=== PATIENT | female | born 1995 | race Caucasian/White ===

== ENCOUNTER 2017-05-04 11:26 | Emergency (ER) | payer OTHER ==
[~2017-05-04] VITALS: Ht 170.2 cm; Wt 59.0 kg
[~2017-05-04 11:26] MED LIST: AMOXICILLIN500 M1 PO; AURALGAN EAR DR14 ML OTIC; CIPROFLOXACIN500 M1 PO; CLARITIN-D 24 H1 TA1 PO; HYDROCODON-ACE1 EAC7 PO; KEFLEX250 MG/5 M PO; KEFLEX500 MG PO; NOHOMEMEDICATIONS; ORAPRED15 MG/5 M1 PO; PREDNISONE 20 M20 M1 PO; ROBITUSSIN-COU237 ML PO; VALTREX1000 MG PO
[2017-05-04 11:36] VITALS: BP 107/68
[2017-05-04 11:40] LABS: URINE BILIRUBIN NEGATIVE (Negative); URINE BLOOD 3+ (Negative); URINE CLARITY CLOUDY; URINE COLOR YELLOW; URINE GLUCOSE-RANDOM NEGATIVE (Negative); URINE KETONES TRACE (Negative); URINE LEUKOCYTES-REFLEX 3+ (Negative); URINE NITRITE-REFLEX NEGATIVE (Negative); URINE PROTEIN 1+ (Negative); URINE SPECIFIC GRAVITY 1.025 (1.005-1.030); URINE UROBILINOGEN 0.2 E.U./dl (0.2-1.0)
[2017-05-04 11:48] LABS: BACTERIA-REFLEX >30 Many /HPF (None Seen); CASTS None Seen /LPF (None Seen); CRYSTALS None Seen /LPF (None Seen); SQUAMOUS >10 Many /LPF (0-3); URINE RBC >20 Many /HPF (0-2); URINE WBC-REFLEX >25 Many /HPF (0-5); WBC CLUMPS Many (None Seen)
[2017-05-04] MEDS ORDERED: BACTRIM DS TAB1 EACH PO (12:15)
== END 2017-05-04 12:32 | disposition home or self-care (01) ==
LOC: M.ERS 11:26
PROVIDERS: Nurse Practitioner Family
DX: N39.0 Urinary tract infection, site not specified (principal); R31.9 Hematuria, unspecified

== ENCOUNTER 2017-07-07 04:54 | Emergency (ER) | payer OTHER ==
[~2017-07-07] VITALS: Ht 170.2 cm; Wt 63.5 kg
[~2017-07-07 04:54] MED LIST changes: +BACTRIM DS TAB1 EACH PO
[2017-07-07 05:17] LABS: URINE BILIRUBIN NEGATIVE (Negative); URINE BLOOD 1+ (Negative); URINE CLARITY SL CLOUDY; URINE COLOR YELLOW; URINE GLUCOSE-RANDOM NEGATIVE (Negative); URINE KETONES NEGATIVE (Negative); URINE NITRITE-REFLEX NEGATIVE (Negative); URINE PROTEIN NEGATIVE (Negative); URINE SPECIFIC GRAVITY 1.015 (1.005-1.030); URINE UROBILINOGEN 0.2 E.U./dl (0.2-1.0)
[2017-07-07 05:18] LABS: URINE LEUKOCYTES-REFLEX 3+ (Negative)
[2017-07-07 05:30] LABS: BACTERIA-REFLEX 1-9 Few /HPF (None Seen); CASTS None Seen /LPF (None Seen); CRYSTALS None Seen /LPF (None Seen); MUCUS 4-6 Moderate strn/LPF (None Seen); SQUAMOUS 4-10 Moderate /LPF (0-3); URINE RBC 3-10 Few /HPF (0-2)
[2017-07-07] MEDS ORDERED: BACTRIM DS TAB1 EACH PO (05:33)
[2017-07-07 05:40] VITALS: BP 130/74
== END 2017-07-07 05:40 | disposition home or self-care (01) ==
LOC: M.ERS 04:54
PROVIDERS: Emergency Medicine
DX: N39.0 Urinary tract infection, site not specified (principal); R31.9 Hematuria, unspecified

== ENCOUNTER 2017-11-15 19:27 | Emergency (ER) | payer OTHER ==
[~2017-11-15] VITALS: Ht 170.2 cm; Wt 63.5 kg
[2017-11-15] MEDS ORDERED: ACYCLOVIR 400400 MG PO (19:37)
[2017-11-15 20:53] LABS: URINE BILIRUBIN NEGATIVE (Negative); URINE BLOOD NEGATIVE (Negative); URINE CLARITY CLEAR; URINE COLOR YELLOW; URINE GLUCOSE-RANDOM NEGATIVE (Negative); URINE KETONES NEGATIVE (Negative); URINE NITRITE-REFLEX NEGATIVE (Negative); URINE PROTEIN NEGATIVE (Negative); URINE SPECIFIC GRAVITY 1.025 (1.005-1.030); URINE UROBILINOGEN 0.2 E.U./dl (0.2-1.0)
[2017-11-15 20:57] LABS: URINE LEUKOCYTES-REFLEX 2+ (Negative)
[2017-11-15 21:02] LABS: BACTERIA-REFLEX 1-9 Few /HPF (None Seen); CASTS None Seen /LPF (None Seen); CRYSTALS None Seen /LPF (None Seen); MUCUS 4-6 Moderate strn/LPF (None Seen); SQUAMOUS >10 Many /LPF (0-3); URINE RBC 3-10 Few /HPF (0-2); URINE WBC-REFLEX 6-15 Few /HPF (0-5)
[2017-11-15] MEDS ORDERED: IBUPROFEN 800800 MG PO (23:04)
[2017-11-15] MEDS ORDERED: ACETAMINOPHEN-1 EAC1 PO (23:04)
[2017-11-16 00:37] VITALS: BP 128/84
== END 2017-11-16 00:02 | disposition home or self-care (01) ==
LOC: M.ERS 19:27
PROVIDERS: Personal Emergency Response Attendant
DX: S50.11XA Contusion of right forearm, initial encounter (principal); S00.83XA Contusion of other part of head, initial encounter; Y08.89XA Assault by other specified means, initial encounter; Y93.89 Activity, other specified; Y92.89 Other specified places as the place of occurrence of the external cause; Y99.8 Other external cause status

== ENCOUNTER 2018-01-20 01:25 | Emergency (ER) | payer OTHER ==
[~2018-01-20] VITALS: Ht 170.2 cm; Wt 63.5 kg
[~2018-01-20 01:25] MED LIST changes: +ACETAMINOPHEN-1 EAC1 PO; +ACYCLOVIR 400400 MG PO; +IBUPROFEN 800800 MG PO
[2018-01-20 01:57] LABS: URINE BILIRUBIN NEGATIVE (Negative); URINE BLOOD 3+ (Negative); URINE CLARITY CLEAR; URINE COLOR YELLOW; URINE GLUCOSE-RANDOM NEGATIVE (Negative); URINE KETONES NEGATIVE (Negative); URINE LEUKOCYTES-REFLEX 1+ (Negative); URINE NITRITE-REFLEX NEGATIVE (Negative); URINE PROTEIN 2+ (Negative); URINE SPECIFIC GRAVITY >= 1.030 (1.005-1.030); URINE UROBILINOGEN 0.2 E.U./dl (0.2-1.0)
[2018-01-20] MEDS ORDERED: CIPROFLOXACIN500 M1 PO (02:15)
[2018-01-20] MEDS ORDERED: NORCO 5-325 TA1 EACH PO (02:15)
[2018-01-20 02:20] VITALS: BP 118/79
[2018-01-20 02:37] LABS: CASTS None Seen /LPF (None Seen); MUCUS 4-6 Moderate strn/LPF (None Seen); SQUAMOUS >10 Many /LPF (0-3)
[2018-01-20 02:38] LABS: URINE WBC-REFLEX >25 Many /HPF (0-5)
[2018-01-20 02:39] LABS: CRYSTALS None Seen /LPF (None Seen)
== END 2018-01-20 02:20 | disposition home or self-care (01) ==
LOC: M.ERS 01:25
PROVIDERS: Personal Emergency Response Attendant
DX: N39.0 Urinary tract infection, site not specified (principal)

== ENCOUNTER 2018-07-27 08:40 | Emergency (ER) | payer OTHER ==
[~2018-07-27] VITALS: Ht 170.2 cm; Wt 63.5 kg
[~2018-07-27 08:40] MED LIST changes: +NORCO 5-325 TA1 EACH PO
[2018-07-27] MEDS ORDERED: VALTREX 500 MG500 M1 PO (08:53)
[2018-07-27 09:10] LABS: URINE BILIRUBIN NEGATIVE (Negative); URINE BLOOD 3+ (Negative); URINE CLARITY CLEAR; URINE COLOR YELLOW; URINE GLUCOSE-RANDOM NEGATIVE (Negative); URINE KETONES NEGATIVE (Negative); URINE LEUKOCYTES-REFLEX 2+ (Negative); URINE NITRITE-REFLEX NEGATIVE (Negative); URINE PROTEIN TRACE (Negative); URINE SPECIFIC GRAVITY >= 1.030 (1.005-1.030); URINE UROBILINOGEN 0.2 E.U./dl (0.2-1.0)
[2018-07-27] MEDS ORDERED: MONISTAT 315 GM VAG (09:11)
[2018-07-27] MEDS ORDERED: 3-DAY VAGINAL C21 GM VAG (09:14)
[2018-07-27 09:19] LABS: CASTS None Seen /LPF (None Seen); MUCUS 4-6 Moderate strn/LPF (None Seen); SQUAMOUS 4-10 Moderate /LPF (0-3); URINE RBC 3-10 Few /HPF (0-2); URINE WBC-REFLEX 6-15 Few /HPF (0-5)
[2018-07-27 09:20] VITALS: BP 126/85
[2018-07-27 09:20] LABS: CRYSTALS None Seen /LPF (None Seen)
== END 2018-07-27 09:26 | disposition home or self-care (01) ==
LOC: M.ERS 08:40
PROVIDERS: Emergency Medicine
DX: B37.9 Candidiasis, unspecified (principal); F17.200 Nicotine dependence, unspecified, uncomplicated

== ENCOUNTER 2018-12-06 20:33 | Emergency (ER) | payer OTHER ==
[~2018-12-06] VITALS: Ht 170.2 cm; Wt 70.3 kg
[~2018-12-06 20:33] MED LIST changes: +3-DAY VAGINAL C21 GM VAG; +MONISTAT 315 GM VAG; +VALTREX 500 MG500 M1 PO
[2018-12-06 20:59] LABS: URINE BILIRUBIN NEGATIVE (Negative); URINE BLOOD NEGATIVE (Negative); URINE CLARITY CLEAR; URINE COLOR YELLOW; URINE GLUCOSE-RANDOM NEGATIVE (Negative); URINE KETONES NEGATIVE (Negative); URINE LEUKOCYTES-REFLEX NEGATIVE (Negative); URINE NITRITE-REFLEX NEGATIVE (Negative); URINE PROTEIN NEGATIVE (Negative); URINE SPECIFIC GRAVITY >= 1.030 (1.005-1.030); URINE UROBILINOGEN 0.2 E.U./dl (0.2-1.0)
[2018-12-06 21:57] VITALS: BP 116/81
== END 2018-12-06 21:57 | disposition home or self-care (01) ==
LOC: M.ERS 20:33
PROVIDERS: Emergency Medicine
DX: Z20.2 Contact with and (suspected) exposure to infections with a predominantly sexual mode of transmission (principal)

== ENCOUNTER 2019-12-11 21:12 | Emergency (ER) | payer OTHER ==
[~2019-12-11] VITALS: Ht 170.2 cm; Wt 72.6 kg
[2019-12-11 21:49] LABS: URINE BILIRUBIN NEGATIVE (Negative); URINE BLOOD TRACE (Negative); URINE CLARITY CLEAR; URINE COLOR YELLOW; URINE GLUCOSE-RANDOM NEGATIVE (Negative); URINE KETONES NEGATIVE (Negative); URINE LEUKOCYTES-REFLEX 1+ (Negative); URINE NITRITE-REFLEX NEGATIVE (Negative); URINE PROTEIN NEGATIVE (Negative); URINE SPECIFIC GRAVITY 1.025 (1.005-1.030); URINE UROBILINOGEN 0.2 E.U./dl (0.2-1.0)
[2019-12-11 22:01] LABS: BACTERIA-REFLEX >30 Many /HPF (None Seen); MUCUS 4-6 Moderate strn/LPF (None Seen); SQUAMOUS 4-10 Moderate /LPF (0-3); URINE RBC 3-10 Few /HPF (0-2); URINE WBC-REFLEX >25 Many /HPF (0-5); WBC CLUMPS Few (None Seen)
[2019-12-11 22:02] LABS: CASTS None Seen /LPF (None Seen); CRYSTALS None Seen /LPF (None Seen)
[2019-12-11] MEDS ORDERED: MACROBID 100 M100 M1 PO (22:04)
[2019-12-11 22:38] VITALS: BP 150/85
== END 2019-12-11 22:39 | disposition home or self-care (01) ==
LOC: M.ERS 21:12
PROVIDERS: Family Medicine
DX: N39.0 Urinary tract infection, site not specified (principal); F17.210 Nicotine dependence, cigarettes, uncomplicated

== ENCOUNTER 2020-08-05 18:07 | Emergency (ER) | payer OTHER, MEDICAID ==
[~2020-08-05] VITALS: Ht 170.2 cm; Wt 72.6 kg
[~2020-08-05 18:07] MED LIST changes: +MACROBID 100 M100 M1 PO
[2020-08-05 18:19] LABS: URINE BILIRUBIN NEGATIVE (Negative); URINE BLOOD 3+ (Negative); URINE CLARITY SL CLOUDY; URINE COLOR YELLOW; URINE GLUCOSE-RANDOM NEGATIVE (Negative); URINE KETONES 1+ (Negative); URINE LEUKOCYTES-REFLEX 1+ (Negative); URINE NITRITE-REFLEX NEGATIVE (Negative); URINE PROTEIN 1+ (Negative); URINE SPECIFIC GRAVITY >= 1.030 (1.005-1.030); URINE UROBILINOGEN 0.2 E.U./dl (0.2-1.0)
[2020-08-05] MEDS ORDERED: XANAX 0.5 MG0.5 M1 PO (18:27)
[2020-08-05] MEDS ORDERED: CYMBALTA20 MG PO (18:27)
[2020-08-05 18:28] LABS: MUCUS >6 Heavy strn/LPF (None Seen); SQUAMOUS >10 Many /LPF (0-3); WBC CLUMPS Many (None Seen)
[2020-08-05] MEDS ORDERED: ABILIFY 5 MG TAB5 MG PO (18:28)
[2020-08-05 18:29] LABS: BACTERIA-REFLEX >30 Many /HPF (None Seen); FINE GRANULAR CASTS 0-3 Few /LPF (None Seen); URINE WBC-REFLEX >25 Many /HPF (0-5)
[2020-08-05 18:30] LABS: AMORPHOUS URATES Few /LPF (None Seen)
[2020-08-05] MEDS ORDERED: ONDANSETRON ODT4 MG PO (18:52)
[2020-08-05] MEDS ORDERED: APAP W/CODEINE1 TA2 PO (18:52)
[2020-08-05] MEDS ORDERED: BACTRIM DS TAB1 EACH PO (18:52)
[2020-08-05 19:12] VITALS: BP 130/78
== END 2020-08-05 19:13 | disposition home or self-care (01) ==
LOC: M.ERS 18:07
PROVIDERS: Physician Assistant
DX: N39.0 Urinary tract infection, site not specified (principal); F17.210 Nicotine dependence, cigarettes, uncomplicated; Z88.8 Allergy status to other drugs, medicaments and biological substances; Z87.440 Personal history of urinary (tract) infections

== ENCOUNTER 2020-10-22 20:41 | Emergency (ER) | payer OTHER, MEDICAID ==
[~2020-10-22] VITALS: Ht 170.2 cm; Wt 72.6 kg
[~2020-10-22 20:41] MED LIST changes: +ABILIFY 5 MG TAB5 MG PO; +APAP W/CODEINE1 TA2 PO; +CYMBALTA20 MG PO; +ONDANSETRON ODT4 MG PO; +XANAX 0.5 MG0.5 M1 PO
[2020-10-22] MEDS ORDERED: PROZAC40 MG PO (20:51)
[2020-10-22] MEDS ORDERED: PREDNISONE 20 M20 MG PO (21:54)
[2020-10-22 22:02] VITALS: BP 134/74
== END 2020-10-22 22:02 | disposition home or self-care (01) ==
LOC: M.ERS 20:41
DX: B34.9 Viral infection, unspecified (principal); Z20.822 Contact with and (suspected) exposure to COVID-19; F17.210 Nicotine dependence, cigarettes, uncomplicated; Z88.8 Allergy status to other drugs, medicaments and biological substances; Z87.440 Personal history of urinary (tract) infections